=== PATIENT | female | born 1990 | race Caucasian/White ===

== ENCOUNTER 2018-03-23 10:30 | Emergency (ER) | payer OTHER ==
[2018-03-23 10:38] VITALS: BP 129/81; PULSE 110; TEMP 98.2; BMI 34.9
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
== END 2018-03-23 12:18 | disposition home or self-care (01) ==
LOC: JERFT 10:30
DX: M54.89 Other dorsalgia (principal); G89.21 Chronic pain due to trauma
CPT/HCPCS: 99281-25

== ENCOUNTER 2018-03-27 18:57 | Emergency (ER) | payer OTHER ==
[2018-03-27 19:22] VITALS: BP 106/82; PULSE 82; TEMP 97.9; BMI 34.9
--- NOTE | 2018-03-27 19:27 | PDOC ---
Rapid Medical Evaluation Chief Complaint: Pain, Acute Time Seen by Provider: 03/27/18 19:20 Medical Evaluation: Allergies Allergy/AdvReac Type Severity Reaction Status Date / Time No Known Allergies Allergy Verified 03/23/18 10:35 03/27/18 19:21 28 YEAR OLD FEMALE c/o right pelvic pain and left arm numbness. + home Pe: patient alert ox3 A: pelvic pain P: labs TVUS patient to the ER for further management of care. 03/27/18 19:25 Discharge Disposition - Diagnosis Pelvic pain - Referrals - Patient Instructions - Post Discharge Activity
[2018-03-27] MEDS ORDERED: ACETAMINOPHEN 500 MG TABLET (FP) PO ONE (19:31)
[2018-03-27] MEDS ORDERED: ACETAMINOPHEN 325 MG TABLET (FP) ONE (20:12)
[2018-03-27] MEDS ORDERED: SODIUM CHLORIDE 0.9% 1000 ML INFUS.BAG IV ONE (20:31)
--- NOTE | 2018-03-27 20:35 | PDOC ---
History of Present Illness - History of Present Illness Initial Comments: This is a 28 year old female currently , (2 previously normal ), with PMHx of cervical disc disease (had an MRI in January which showed bulging discs in her neck as well as some herniated discs in her spine) who presents with right sided abdominal pain. Patient states that 3 days ago she began experiencing left handed numbness & tingling, which she described as pins and needles, worse in the morning, that radiated up to her elbow. She states that her abdominal pain began last night around 10 pm and describes it as sharp, non-radiating, and lasted for about a minute then went away. Today she states that her abdominal pain returned and describes it as pulsating, throbbing, constant, located in RLQ. She states that she has experienced some nausea and vomiting but attributes it to her . She states that she had an IUD taken out on Jan 06, 2018 and hasnt had her period since except for some spotting in January 2018. Denies any changes in speech. Denies any weakness. Denies recent chest pain, shortness of breath, urinary symptoms, diarrhea, fever, chills, headache, vaginal bleeding or discharge. Denies recent travel. Denies past surgical Hx. <Ashlee Feng - Last Filed: 03/27/18 21:21> - General History Source: Patient Exam Limitations: No Limitations <Krysta Taylor - Last Filed: 03/27/18 22:11> - General Chief Complaint: Vaginal Bleeding Stated Complaint: ,Possible/RIGHT SIDE PAIN Time Seen by Provider: 03/27/18 19:20 Past History <Ashlee Feng - Last Filed: 03/27/18 21:21> - Past Medical History COPD: No - Suicide/Smoking/Psychosocial Hx Smoking History: Never smoked Information on smoking cessation initiated: No <Krysta Taylor - Last Filed: 03/27/18 22:11> - Past Medical History Allergies/Adverse Reactions: Allergies Allergy/AdvReac Type Severity Reaction Status Date / Time metronidazole [From Flagyl] Allergy Verified 03/27/18 19:22 Review of Systems - Review of Systems Comments:: GENERAL/CONSTITUTIONAL: No fever or chills. No weakness. HEAD, EYES, EARS, NOSE AND THROAT: No change in vision. No ear pain or discharge. No sore throat. CARDIOVASCULAR: No chest pain or shortness of breath. RESPIRATORY: No cough, wheezing, or hemoptysis. GASTROINTESTINAL: +nausea, +vomiting, no diarrhea or constipation. GENITOURINARY: No dysuria, frequency, or change in urination. MUSCULOSKELETAL: No joint or muscle pain. No new neck or back pain. SKIN: No rash NEUROLOGIC: +left hand/arm paresthesia. No headache, vertigo, loss of consciousness, or change in strength. ENDOCRINE: No increased thirst. No abnormal weight change. HEMATOLOGIC/LYMPHATIC: No anemia, easy bleeding, or history of blood clots. ALLERGIC/IMMUNOLOGIC: No hives or skin allergy. <Ashlee Feng - Last Filed: 03/27/18 21:21> *Physical Exam - Vital Signs Last Vital Signs Temp Pulse Resp BP Pulse Ox 97.9 F 82 18 106/82 100 03/27/18 19:19 18 19:19 18 19:19 03/27/18 19:19 03/27/18 19:19 - Physical Exam Comments: GENERAL: Awake, alert, and fully oriented, in no acute distress HEAD: No signs of trauma EYES: PERRLA, EOMI, sclera anicteric, conjunctiva clear LUNGS: Breath sounds equal, clear to auscultation bilaterally. No wheezes, and no crackles HEART: Regular rate and rhythm, normal S1 and S2, no murmurs, rubs or gallops ABDOMEN: Soft, right adnexal tenderness. Normoactive bowel sounds. No guarding , no rebound. EXTREMITIES: B/l wrist and elbow flexion & extension 5/5, pinching 5/5, 2+ radial and ulnar pulses. Normal range of motion, no edema. No clubbing or cyanosis. No cords, erythema, or tenderness NEUROLOGICAL: Normal speech, normal gait. Mild decreased sensation to light touch over left palm. SKIN: Warm, Dry, normal turgor, no rashes or lesions noted. Pelvic Exam: Scant white discharge at the vaginal vault. <Ashlee Feng - Last Filed: 03/27/18 21:21> - Vital Signs Last Vital Signs Temp Pulse Resp BP Pulse Ox 97.9 F 82 18 106/82 100 03/27/18 19:19 03/27/18 19:19 03/27/18 19:19 03/27/18 19:19 03/27/18 19:19 <Krysta Taylor - Last Filed: 03/27/18 22:11> ED Treatment Course - LABORATORY CBC & Chemistry Diagram: 03/27/18 20:25 - Medications Given in the ED: ED Medications Discontinued Medications Generic Name Dose Route Start Last Admin Trade Name Freq PRN Reason Stop Dose Admin Acetaminophen 975 mg 03/27/18 19:31 03/27/18 20:30 Tylenol - PO 03/27/18 19:32 975 mg ONCE ONE Administration <Ashlee Feng - Last Filed: 03/27/18 21:21> - LABORATORY CBC & Chemistry Diagram: 03/27/18 20:25 - Medications Given in the ED: ED Medications Discontinued Medications Generic Name Dose Route Start Last Admin Trade Name Freq PRN Reason Stop Dose Admin Acetaminophen 975 mg 03/27/18 19:31 03/27/18 20:30 Tylenol - PO 03/27/18 19:32 975 mg ONCE ONE Administration <Krysta Taylor - Last Filed: 03/27/18 22:11> Medical Decision Making - Medical Decision Making 03/27/18 20:32 28 yo F with h/o cervical disc disease lower back pain here today currently unsure of dates, LMP was spotting in january. had recently had iud removed in december. last pm had sharp right lower quadrant pain, fleeting lasted less than minute then recurred. no pain currenlty has had mild nausea, intermittent vomiting. 03/27/18 21:14 differential: radiculopathy, carpal tunnel, ecoptic, ovarian cyst. plan us tvus , labs bchg, ua, pt has had recent mri of her cervical spin showing disc bulge. will rajan require outpt nuerology followup has seen nuerology in past, sxs bretley exacerbated by change of . 03/27/18 21:53 pt started screaming , demanding iv be taken out of her arm. iv removed. explained concerns for r/o ectopic and need for iv. will orally hydrate for tvus. tvus performed awaiting results. <Krysta Taylor - Last Filed: 03/27/18 22:11> *DC/Admit/Observation/Transfer - Attestations Scribe Attestion: 03/27/18 21:00 Documentation prepared by Ashlee Feng, acting as medical claims specialist for Krysta Taylor MD. <Ashlee Feng - Last Filed: 03/27/18 21:21> - Discharge Dispostion Decision to Admit order: No <Krysta Taylor - Last Filed: 03/27/18 22:11> Diagnosis at time of Disposition: Pelvic pain, - Discharge Dispostion Disposition: HOME Condition at time of disposition: Good - Patient Instructions Printed Discharge Instructions: Medications and , DI for Cervical Radiculopathy Additional Instructions: your HCG level is 381 they are unable to see the in the uterus yet. you will therefore need a repeat hormone level, and a repeat ultrasound in 48 - 72 hours. you can follow up with dr. Calderon ( ob/ helper coordinator) . you can call to schedule. if you have worsening pain, bleeding or any concerns you should come back immediately. you can also follow up with your nuerologist for your arm / hand numbness. you should wear a brace on your wrist at night to help with symptoms. you should take a vitamin daily.
[2018-03-27 20:40] LABS: BASO % 0.5 % (0-2.0); EOS % 0.3 % (0-4.5); HEMOGLOBIN 13.8 GM/dL (10.7-15.3); LYMPH % 33.9 % (8-40); MCH 29.6 pg (25.7-33.7); MCHC 32.8 g/dl (32.0-36.0); MEAN CELL VOLUME 90.5 fl (80-96); MEAN PLT VOLUME 10.3 fl (7.5-11.1); MONO % 9.6 % (3.8-10.2); NEUT % 55.7 % (42.8-82.8); PLATELET COUNT 277 K/MM3 (134-434); RBC 4.65 M/mm3 (3.60-5.2); RDW 13.8 % (11.6-15.6); WHITE BLOOD COUNT 11.1 K/mm3 (4.0-10.0)
[2018-03-27 20:43] LABS: URINE APPEARANCE CLOUDY; URINE BILIRUBIN NEGATIVE (<2.0 mg/dL); URINE COLOR YELLOW; URINE GLUCOSE (UA) NEGATIVE (NEGATIVE); URINE KETONE 1+ (NEGATIVE); URINE LEUK ESTERASE 2+ (NEGATIVE); URINE NITRITE NEGATIVE (NEGATIVE); URINE PROTEIN NEGATIVE (NEGATIVE); URINE UROBILINOGEN NEGATIVE mg/dL (0.2-1.0)
[2018-03-27 20:46] LABS: EPI CELLS MANY /HPF (FEW); URINE BACTERIA RARE /hpf (NONE SEEN); URINE MUCUS FEW
[2018-03-27 20:53] LABS: INR 0.94 (0.83-1.09); PROTHROMBIN TIME (PATIENT) 11.1 SEC (9.7-13.0)
== END 2018-03-27 22:20 | disposition home or self-care (01) ==
LOC: JER 18:57
DX: O26.91 Pregnancy related conditions, unspecified, first trimester (principal); R10.2 Pelvic and perineal pain; O99.351 Diseases of the nervous system complicating pregnancy, first trimester; M54.12 Radiculopathy, cervical region; Z3A.00 Weeks of gestation of pregnancy not specified
CPT/HCPCS: 36415; 76817-TC; 81003; 81015; 84702; 85025; 85610; 86850; 86900; 86901; 99282-25

== ENCOUNTER 2018-06-02 17:50 | Emergency (ER) | payer OTHER ==
--- NOTE | 2018-06-02 17:54 | PDOC ---
Rapid Medical Evaluation Chief Complaint: Pain Time Seen by Provider: 06/02/18 17:51 Medical Evaluation: Allergies Allergy/AdvReac Type Severity Reaction Status Date / Time metronidazole [From Flagyl] Allergy Verified 03/27/18 19:22 06/02/18 17:52 I have performed a brief in person evaluation of this patient. The patient's CC: abdominal pain HPI: Pt is a 28 Yo female who is 4 months and complains of vaginal discharge. Denies hx of STDs. PE: Skin: Clear Heart: RRR Lungs: Clear MS. moves all extremities without difficulty. Neuro: Alert and oriented Psch: appropriate affect The patient will proceed to main ED for further evaluation. Discharge Disposition - Diagnosis Abdominal pain Qualifiers: Abdominal location: lower abdomen, unspecified Qualified Code(s): R10.30 - Lower abdominal pain, unspecified - Referrals - Patient Instructions - Post Discharge Activity
[2018-06-02 17:56] VITALS: BP 135/85; PULSE 90; TEMP 98.1; BMI 38.2
--- NOTE | 2018-06-02 18:46 | PDOC ---
History of Present Illness - General Chief Complaint: Pain Stated Complaint: ABD PAIN Time Seen by Provider: 06/02/18 17:51 History Source: Patient Past History - Past Medical History Allergies/Adverse Reactions: Allergies Allergy/AdvReac Type Severity Reaction Status Date / Time metronidazole [From Flagyl] Allergy Verified 06/02/18 18:45 Home Medications: Ambulatory Orders NK [No Known Home Medication] 03/27/18 COPD: No - Reproductive History (#): 3 Para: 3 - Immunization History Immunization Up to Date: Yes - Suicide/Smoking/Psychosocial Hx Smoking History: Never smoked Hx Alcohol Use: No Drug/Substance Use Hx: No Review of Systems - Review of Systems Constitutional: No: Chills, Fever ABD/GI: Yes: Abdominal cramping. No: Nausea, Vomiting : No: Dysuria, Flank Pain, Hematuria *Physical Exam - Vital Signs Last Vital Signs Temp Pulse Resp BP Pulse Ox 98.1 F 90 15 135/85 99 06/02/18 17:52 06/02/18 17:52 06/02/18 17:52 06/02/18 17:52 06/02/18 17:52 - Physical Exam General Appearance: Yes: Appropriately Dressed. No: Apparent Distress HEENT: positive: Normal Voice Neck: positive: Supple Respiratory/Chest: negative: Respiratory Distress Gastrointestinal/Abdominal: positive: Soft. negative: Tender Musculoskeletal: negative: CVA Tenderness Integumentary: positive: Dry, Warm Neurologic: positive: Fully Oriented, Alert, Normal Mood/Affect Moderate Sedation - Procedure Monitoring Vital Signs: Procedure Monitoring Vital Signs Temperature 98.1 F 06/02/18 17:52 Pulse Rate 90 06/02/18 17:52 Respiratory Rate 15 06/02/18 17:52 Blood Pressure 135/85 06/02/18 17:52 O2 Sat by Pulse Oximetry (%) 99 06/02/18 17:52 Medical Decision Making - Medical Decision Making 06/02/18 18:45 28 yo , ~ 4 months , last US 3-4 weeks ago, no issues w/ preg so far, here w/ lower abd pain r/t back x 2 days. No vag bleed, dysuria, n/v/f/c See exam 2nd trimester abd pain No vag bleed/dysuria No trauma No issues w/ preg so far, last US ~3 weeks ago Exam unremarkable -ua -US 06/02/18 19:45 06/02/18 19:46 Pt requesting to leave prior to results of urine and ultrasound. 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 Requested that I call her back at [phone] 06/02/18 20:39 UA with trace leuks, no nitrites. Ucx pending. Ultrasound read as live intrauterine at ~14 weeks with cardiac activity and possible low- lying placenta, need transvag US to r/o placenta previa. I called patient and discussed results, has no vag bleeding. Patient to follow up with her OB this week. Reasons to return discussed with patient *DC/Admit/Observation/Transfer Diagnosis at time of Disposition: Abdominal pain affecting - Discharge Dispostion Disposition: HOME Condition at time of disposition: Stable - Referrals Referrals: Jazzy Rosenberg MD [Primary Care Provider] - - Patient Instructions Printed Discharge Instructions: Managing Symptoms of Additional Instructions: You have left prior to your urine and ultrasound results. We will call you with results when they return. Take Tylenol for pain as needed and follow up with your OB - Post Discharge Activity
[2018-06-02 19:06] LABS: URINE APPEARANCE CLOUDY; URINE BILIRUBIN NEGATIVE (<2.0 mg/dL); URINE COLOR DKYELLOW; URINE GLUCOSE (UA) NEGATIVE (NEGATIVE); URINE KETONE TRACE (NEGATIVE); URINE LEUK ESTERASE 1+ (NEGATIVE); URINE NITRITE NEGATIVE (NEGATIVE); URINE PROTEIN NEGATIVE (NEGATIVE); URINE UROBILINOGEN NEGATIVE mg/dL (0.2-1.0)
[2018-06-02 21:21] LABS: CALCIUM OXALATE CRYSTALS MODERATE /hpf (NONE SEEN); EPI CELLS MANY /HPF (FEW); URINE BACTERIA RARE /hpf (NONE SEEN); URINE MUCUS MODERATE
== END 2018-06-02 19:53 | disposition home or self-care (01) ==
LOC: JER 17:50
DX: O26.892 Other specified pregnancy related conditions, second trimester (principal); O44.42 Low lying placenta NOS or without hemorrhage, second trimester; Z3A.14 14 weeks gestation of pregnancy
CPT/HCPCS: 76815; 81003; 81015; 99282-25

== ENCOUNTER 2018-11-22 07:05 | Inpatient (IN) | payer OTHER ==
[2018-11-22] MEDS ORDERED: ELECTROLYTE-148 SOLN 1,000 ML IV SCH (07:30)
[2018-11-22 08:17] LABS: BASO % 0.3 % (0-2.0); EOS % 0.6 % (0-4.5); HEMATOCRIT 34.9 % (32.4-45.2); HEMOGLOBIN 11.6 GM/dL (10.7-15.3); LYMPH % 28.7 % (8-40); MCH 28.6 pg (25.7-33.7); MCHC 33.4 g/dl (32.0-36.0); MEAN CELL VOLUME 85.5 fl (80-96); MEAN PLT VOLUME 10.5 fl (7.5-11.1); MONO % 9.5 % (3.8-10.2); NEUT % 60.9 % (42.8-82.8); RBC 4.08 M/mm3 (3.60-5.2); RDW 13.8 % (11.6-15.6); WHITE BLOOD COUNT 9.1 K/mm3 (4.0-10.0)
[2018-11-22 08:22] VITALS: BMI 23.8
[2018-11-22 08:22] LABS: BLOOD UREA NITROGEN 12.4 mg/dL (7-18); CALCIUM 8.4 mg/dL (8.5-10.1); CREATININE 0.4 mg/dL (0.55-1.3)
[2018-11-22 08:28] LABS: INR 0.89 (0.83-1.09); PROTHROMBIN TIME (PATIENT) 10.5 SEC (9.7-13.0)
[2018-11-22 08:31] LABS: ACTIVATED PTT 29.9 SECONDS (25.2-36.5)
[2018-11-22 08:38] LABS: PLATELET COUNT 211 K/MM3 (134-434)
--- NOTE | 2018-11-22 09:15 | HP ---
Past Medical History - Admission Chief Complaint: cramping, leaking fluid History of Present Illness: 28 y/o female with SIUP at 38.6 weeks admitted with complaints of LOF/ cramps. Upon examination pt is 2cm dilated, grossly ruptured but confirmed by nitrizine. complicated by obesity. H/o X 2. Normal female by NIPT, AFP also WNL. Followed with MFM throughout . GBS negative. HIV negative. History Source: Patient, Medical Record Limitations to Obtaining History: No Limitations - Past Medical History ...: 4 ...Para: 2 ...Term: 2 ...: 0 ...Spon : 1 ...Induced : 0 ...Multiple Gestation: 0 ...LMP: 02/22/18 ... Weeks Gestation by Dates: 39 ...EDC by Dates: 11/29/18 ...EDC by Sono: 11/29/18 - Past Surgical History Hx Myomectomy: No Hx Transabdominal Cerclage: No - Smoking History Smoking history: Never smoked - Alcohol/Substance Use Hx Alcohol Use: No - Social History Usual Living Arrangement: Yes: With Spouse ADL: Independent History of Recent Travel: No Home Medications - Allergies Allergies/Adverse Reactions: Allergies Allergy/AdvReac Type Severity Reaction Status Date / Time metronidazole [From Flagyl] Allergy Verified 10/06/18 09:31 Review of Systems - Review of Systems Constitutional: reports: No Symptoms Eyes: reports: No Symptoms HENT: reports: No Symptoms Neck: reports: No Symptoms Cardiovascular: reports: No Symptoms Respiratory: reports: No Symptoms Gastrointestinal: reports: No Symptoms Genitourinary: reports: Other (leaking amniotic fluid) Musculoskeletal: reports: No Symptoms Integumentary: reports: No Symptoms Neurological: reports: No Symptoms Endocrine: reports: No Symptoms Hematology/Lymphatic: reports: No Symptoms Psychiatric: reports: No Symptoms Physical Exam - Maternity Vital Signs: Vital Signs Temperature 98 F 11/22/18 08:10 Pulse Rate 70 11/22/18 09:00 Respiratory Rate 18 11/22/18 09:00 Blood Pressure 129/82 11/22/18 09:00 O2 Sat by Pulse Oximetry (%) Constitutional: Yes: Well Nourished, No Distress, Calm Eyes: Yes: Conjunctiva Clear Neck: Yes: Supple Cardiovascular: Yes: Regular Rate and Rhythm Lungs: Clear to auscultation - Abdominal Exam/OB Fundal Height: 39 Number of Fetuses: Single Presentation: Vertex Contractions: Yes Regularity: Regular Intensity: Mild/Mod Accelerations: Uniform Decelerations: None - Vaginal Exam/OB Vaginal Bleediing: No Dilatation (cm): 2 Effacement (%): 50 Amniotic Membrane Status: Ruptured Amniotic Fluid: Yes: Clear Presentation: Vertex/Position Station: -2 - Physical Exam Psychiatric: Yes: Alert, Oriented - Labs Lab Results: CBC, BMP 11/22/18 07:30 11/22/18 07:30 Hemorrhage Risk Assessment - Risk Factors Medium Risk Factors: Yes: None High Risk Factors: Yes: None Risk Score: 1 Risk Level: Medium Risk Problem List - Problems (1) Spontaneous rupture of amniotic membranes Code(s): [id number] - (2) Term Code(s): Z34.90 - ENCNTR FOR SUPRVSN OF NORMAL , UNSP, UNSP TRIMESTER Assessment/Plan 28 y/o with SIUP at 38.6 weeks here with SROM, contractions, early labor admitted to L&D labs WNL analgesia prn GBS negative expectant management for now
[2018-11-22] MEDS ORDERED: BUTORPHANOL TARTRATE 1 MG/ML VIAL IVPB ONE (09:47)
[2018-11-22] MEDS ORDERED: PROMETHAZINE HCL 25 MG/1 ML VIAL IVPUSH ONE (09:47)
[2018-11-22] MEDS ORDERED: FENTANYL/BUPIVACAINE/NS/PF - PCEA - 50 ML DISP.SYRIN EP ONE ×2 (12:56→17:09)
[2018-11-22] MEDS ORDERED: NALOXONE HCL 0.4 MG/ML VIAL IVPUSH PRN (14:10)
[2018-11-22] MEDS ORDERED: FENTANYL/BUPIVACAINE/NS/PF - PCEA - 50 ML DISP.SYRIN EP SCH (14:15)
[2018-11-22] MEDS ORDERED: OXYTOCIN 20 UNITS in 0.9% NS 20 UNIT/1,000 ML INFUS.BAG IV ONE (18:28)
[2018-11-22] MEDS ORDERED: LIDOCAINE HCL 1% PRESERVATIVE FREE - 30ML VIAL ONE (18:28)
[2018-11-22] MEDS ORDERED: BISACODYL 10 MG SUPP.RECT RC PRN (18:41)
[2018-11-22] MEDS ORDERED: BENZOCAINE 28 GM HEMORRHOIDAL OINTMENT TP PRN (18:41)
[2018-11-22] MEDS ORDERED: BENZOCAINE 20% 57 GM BOTTLE TP PRN (18:41)
[2018-11-22] MEDS ORDERED: METHYLERGONOVINE MALEATE 0.2 MG/1 ML AMP IM PRN (18:41)
[2018-11-22] MEDS ORDERED: WITCH HAZEL 50% (TUCKS) 40 PAD/JAR PAD TP PRN (18:41)
[2018-11-22] MEDS ORDERED: OXYTOCIN 20 UNITS in 0.9% NS 20 UNIT/1,000 ML INFUS.BAG IV SCH (18:45)
--- NOTE | 2018-11-22 21:45 | PN ---
Delivery - Delivery Type of Anesthesia: Epidural Episiotomy/Laceration: None EBL (cc): 300 Delivery, Single - Stages of Labor Date 1st Stage Initiatied: 11/22/18 Time 1st Stage Initiated: 06:30 Date 2nd Stage Initiated: 11/22/18 Time 2nd Stage Initiated: 19:00 Date of Delivery: 11/22/18 Time of Delivery: 19:07 Time Placenta Delivered: 19:10 Placenta: Yes: Spontaneous - Condition of Infant Dope Worker/Sorter Operator Present: No Gender: Female Weight: 7 lb 9 oz Position: Left, OA Total Hours ROM (Hrs/Mins): 13H10M - 1 Minute Total Score: 9 5 Minutes Total Score: 9 - Feeding Plan Initial Plan: Elected not to breastfeed exclusively throughout hospitalization Remarks - Remarks Remarks: Uncomplicated delivery of live female infant from VITA position across intact perineum anterior shoulder (right) delivered with ease along with remainder of 3VC noted, clamped and cut placenta delivered in tact and spontaneously no lacerations noted mom stable baby to well baby nursery oxytocin infusing after delivery
[2018-11-22] MEDS: ACETAMINOPHEN 325 MG TABLET (FP) PO PRN (23:50)
[2018-11-22] MEDS: IBUPROFEN 600 MG TABLET (FP) PO PRN (23:51)
[2018-11-23] MEDS: ACETAMINOPHEN 325 MG TABLET (FP) PO PRN ×3 (03:35→20:10)
[2018-11-23] MEDS: IBUPROFEN 600 MG TABLET (FP) PO PRN ×2 (03:35→20:09)
[2018-11-23 08:22] LABS: BASO % 0.2 % (0-2.0); EOS % 0.4 % (0-4.5); HEMATOCRIT 34.4 % (32.4-45.2); HEMOGLOBIN 11.5 GM/dL (10.7-15.3); LYMPH % 20.3 % (8-40); MCH 28.9 pg (25.7-33.7); MCHC 33.4 g/dl (32.0-36.0); MEAN CELL VOLUME 86.4 fl (80-96); MEAN PLT VOLUME 11.1 fl (7.5-11.1); NEUT % 67.1 % (42.8-82.8); PLATELET COUNT 224 K/MM3 (134-434); RBC 3.98 M/mm3 (3.60-5.2); RDW 13.7 % (11.6-15.6); WHITE BLOOD COUNT 13.2 K/mm3 (4.0-10.0)
[2018-11-23] MEDS: oxyCODONE HCL 5 MG TABLET PO PRN ×3 (08:45→20:10)
[2018-11-23] MEDS ORDERED: DIPHTH,PERTUSS(ACELL),TET 0.5 ML DISP.SYRIN IM ONE (14:00)
[2018-11-23 15:49] VITALS: PULSE 74
[2018-11-23] MEDS ORDERED: SENNOSIDES/DOCUSATE COMBO (SENNA PLUS) TABLET (UD) PO PRN (22:00)
[2018-11-24] MEDS: ACETAMINOPHEN 325 MG TABLET (FP) PO PRN ×2 (02:02→08:39)
[2018-11-24] MEDS: IBUPROFEN 600 MG TABLET (FP) PO PRN (02:02)
[2018-11-24] MEDS: oxyCODONE HCL 5 MG TABLET PO PRN ×2 (02:02→08:41)
--- NOTE | 2018-11-24 10:12 | DS ---
Physical Exam-METAL MOULDER Vital Signs: Vital Signs Temperature 98.7 F 11/23/18 22:00 Pulse Rate 74 11/23/18 22:00 Respiratory Rate 20 11/23/18 22:00 Blood Pressure 129/96 11/23/18 22:00 O2 Sat by Pulse Oximetry (%) 100 11/22/18 19:00 Constitutional: Yes: Well Nourished Eyes: Yes: Conjunctiva Clear HENT: Yes: Atraumatic Neck: Yes: Supple Cardiovascular: Yes: Regular Rate and Rhythm Respiratory: Yes: Regular Gastrointestinal: Yes: Normal Bowel Sounds External Genitalia: Yes: Normal Vaginal Exam: Yes: Normal Cervix: Yes: Normal Uterus: Yes: Firm ....Post : Yes: Uterus firm Breast(s): Yes: WNL Musculoskeletal: Yes: WNL Extremities: Yes: WNL Neurological: Yes: Alert, Oriented ...Motor Strength: WNL Psychiatric: Yes: Alert, Oriented Labs: CBC, BMP 11/23/18 07:42 11/22/18 07:30 Delivery - Delivery Type of Anesthesia: Epidural Episiotomy/Laceration: None EBL (cc): 300 Delivery, Single - Stages of Labor Date 1st Stage Initiatied: 11/22/18 Time 1st Stage Initiated: 06:30 Date 2nd Stage Initiated: 11/22/18 Time 2nd Stage Initiated: 19:00 Date of Delivery: 11/22/18 Time of Delivery: 19:07 Time Placenta Delivered: 19:10 Placenta: Yes: Spontaneous - Condition of Infant Machine Silk Screen Printer/Duck Bill Operator Present: No Gender: Female Weight: 7 lb 9 oz Position: Left, OA Total Hours ROM (Hrs/Mins): 13H10M - 1 Minute Total Score: 9 5 Minutes Total Score: 9 - [place] Feeding Plan Initial Plan: Elected not to breastfeed exclusively throughout hospitalization Discharge Summary Reason For Visit: LABOR Current Active Problems Spontaneous rupture of amniotic membranes (Acute) Term (Acute) Procedures: Principal: Normal vaginal delivery Hospital Course: Routine care Condition: Good - Instructions Diet, Activity, Other Instructions: Regular diet No douching, no sexual intercourse x 6 weeks F/U with MD in 6 weeks Disposition: HOME
[2018-11-24 11:03] VITALS: BP 143/72; TEMP 98.2
--- NOTE | 2018-11-27 07:47 | PN ---
Post Progress Note Type of Delivery: Vital Signs: Vital Signs Temperature 98.2 F 11/24/18 10:00 Pulse Rate 74 11/24/18 10:00 Respiratory Rate 20 11/24/18 10:00 Blood Pressure 143/72 11/24/18 10:00 O2 Sat by Pulse Oximetry (%) 100 11/22/18 19:00 Uterus: Yes: Fundus Firm Abdomen/GI: Yes: Abdomen soft Lochia, amount: Small Extremities: Yes: Calves non-tender Perineum: Yes: Intact Activity: Ambulating - Labs Labs: CBC WBC 13.2 K/mm3 (4.0-10.0) H 11/23/18 07:42 RBC 3.98 M/mm3 (3.60-5.2) 11/23/18 07:42 Hgb 11.5 GM/dL (10.7-15.3) 11/23/18 07:42 Hct 34.4 % (32.4-45.2) 11/23/18 07:42 MCV 86.4 fl (80-96) 11/23/18 07:42 MCH 28.9 pg (25.7-33.7) 11/23/18 07:42 MCHC 33.4 g/dl (32.0-36.0) 11/23/18 07:42 RDW 13.7 % (11.6-15.6) 11/23/18 07:42 Plt Count 224 K/MM3 (134-434) 11/23/18 07:42 MPV 11.1 fl (7.5-11.1) 11/23/18 07:42 Absolute Neuts (auto) 8.8 K/mm3 (1.5-8.0) H 11/23/18 07:42 Neutrophils % 67.1 % (42.8-82.8) 11/23/18 07:42 Lymphocytes % 20.3 % (8-40) D 11/23/18 07:42 Monocytes % 12.0 % (3.8-10.2) H 11/23/18 07:42 Eosinophils % 0.4 % (0-4.5) 11/23/18 07:42 Basophils % 0.2 % (0-2.0) 11/23/18 07:42 Nucleated RBC % 0 % (0-0) 11/23/18 07:42 Problem List - Problems (1) Spontaneous rupture of amniotic membranes Code(s): KWG4303 - (2) Term Code(s): Z34.90 - ENCNTR FOR SUPRVSN OF NORMAL , UNSP, UNSP TRIMESTER (3) Normal vaginal delivery Code(s): O80 - ENCOUNTER FOR FULL-TERM UNCOMPLICATED DELIVERY Assessment/Plan pt doing well routine care encourage ambulation regular diet cbc stable
== END 2018-11-24 16:30 | disposition home or self-care (01) | DRG 560 ==
LOC: JLDR 07:05 → J3W 20:52
PROVIDERS: ADMIT Obstetrics & Gynecology; ATTEND Obstetrics & Gynecology
PROC: 10E0XZZ Delivery of Products of Conception, External Approach (ICD-10-PCS; principal; 2018-11-22)
DX: O99.214 Obesity complicating childbirth (principal); Z3A.38 38 weeks gestation of pregnancy; Z37.0 Single live birth
CPT/HCPCS: 36415; 59409; 80048; 85025; 85610; 85730; 86593; 86850; 86900; 86901; 90715

== ENCOUNTER 2020-01-06 11:34 | Emergency (ER) | payer OTHER ==
[2020-01-06] MEDS ORDERED: ACETAMINOPHEN 325 MG TABLET (FP) PO ONE (11:44)
[2020-01-06] MEDS ORDERED: LIDOCAINE 5% TOPICAL PATCH TP ONE (11:44)
[2020-01-06 11:53] VITALS: BP 131/77; PULSE 76; TEMP 98.4; BMI 37.9
[2020-01-06] MEDS ORDERED: LIDOCAINE 5% TOPICAL PATCH ONE (12:04)
[2020-01-06] MEDS ORDERED: ACETAMINOPHEN 325 MG TABLET (FP) ONE (12:04)
--- NOTE | 2020-01-06 12:14 | PDOC ---
History of Present Illness - General Chief Complaint: Injury Stated Complaint: FALL,RT BACK PAIN Time Seen by Provider: 01/06/20 11:44 History Source: Patient Exam Limitations: No Limitations - History of Present Illness Initial Comments: Pt is a 29 yo F, @24 weeks, who is presenting with diffuse lower lumbar back pain. Pt states 4 days ago (01/02), she slipped backwards in a wet bathroom, hitting her back and occiput of her head. Pt was visiting in [place], [place] at that time, and had a trauma evaluation done at [facility], which included CT head, C/T/L spine and x-rays, which were negative for fractures. She also endorses light sensitivity and frontal headache since the fall. Pt has not seen any analgesics for her pain. Pt saw her OB and PT on Friday, which showed good activity. Pt has continued to feel movement, with no vaginal bleeding, abdominal pain, passage of fluids. Pt denies any fevers/chills, vision changes, syncope, chest pain, palpitations, SOB, nausea/vomiting, abdominal pain, urinary symptoms, incontinence of urine or stool, diarrhea/constipation, parasthesia/numbness/weakness of extremities, or leg swelling. Allergies: NKDA Social: Pt denies any cigarette, alcohol, or drug use. Pt denies any recent travel or sick contacts. Surgical: broken mandible repair Family: no relevant history. 01/06/20 12:25 Past History - Travel History Traveled outside of the country in the last 30 days: No Close contact w/someone who was outside of country & ill: No - Medical History Allergies/Adverse Reactions: Allergies Allergy/AdvReac Type Severity Reaction Status Date / Time metronidazole [From Flagyl] Allergy Verified 01/06/20 11:34 Home Medications: Ambulatory Orders Alprazolam 2 mg PO BID 01/06/20 Dextroamphetamine/Amphetamine [Adderall Xr 30 mg Capsule] 30 mg PO DAILY 01/06/20 Lidocaine 5% Patch [Lidoderm -] 1 patch TP DAILY #7 patch 01/06/20 Sertraline HCl [Zoloft] 100 mg PO DAILY 01/06/20 Asthma: No Cancer: No Cardiac Disorders: No COPD: No Diabetes: No HTN: No Psychiatric Problems: Yes (ANXIETY,DEPRESSION) Seizures: No Thyroid Disease: No - Reproductive History Is Patient Now?: Yes (#): 3 Para: 3 - Immunization History Immunization Up to Date: Yes - Psycho-Social/Smoking History Smoking History: Never smoked Have you smoked in the past 12 months: No Information on smoking cessation initiated: No - Substance Abuse Hx (Audit-C & DAST Scrn) How often the patient has a drink containing alcohol: Never Score: In Men: 4 or > Positive; In Women: 3 or > Positive: 0 Screen Result (Pos requires Nsg. Audit-10AR): Negative In the last yr the pt used illegal drug/Rx for NonMed reason: No Score: Yes response is considered Positive: 0 Screen Result (Positive result requires Nsg. DAST-10): Negative Trauma Specific PMHX - Complaint Specific PMHX Arthritis: No Back Injury: Yes Neck Injury: No Hx Sacro Iliac Joint Dysfunction: No Review of Systems - Review of Systems Able to Perform ROS?: Yes Is the patient limited Yi proficient: No Constitutional: Yes: Weight Stable. No: Chills, Diaphoresis, Fever, Loss of Appetite, Malaise, Weakness HEENTM: Yes: Other (light sensitivity). No: Blurred Vision, Recent change in vision, Double Vision, Nose Congestion, Throat Pain, Throat Swelling, Difficulty Swallowing Respiratory: No: Cough, Orthopnea, Shortness of Breath Cardiac (ROS): No: Chest Pain, Edema, Irregular Heart Rate, Lightheadedness, Palpitations, Syncope, Chest Tightness ABD/GI: No: Constipated, Diarrhea, Nausea, Poor Appetite, Poor Fluid Intake, Vomiting : No: Burning, Dysuria, Discharge, Frequency, Flank Pain, Hematuria, Inc ontinence, Pain, Urgency Musculoskeletal: Yes: See HPI, Back Pain. No: Muscle Pain, Muscle Weakness, Neck Pain Integumentary: No: Bruising, Rash Neurological: Yes: Headache. No: Numbness, Paresthesia, Weakness, Unsteady Gait, Ataxia, Dizziness Psychiatric: No: Sleep Pattern Change, Change in Appetite Endocrine: No: Increased Urine, Change in Weight Hematologic/Lymphatic: No: Anemia, Blood Clots, Easy Bleeding, Easy Bruising All Other Systems: Reviewed and Negative *Physical Exam - Vital Signs Last Vital Signs Temp Pulse Resp BP Pulse Ox 98.4 F 76 20 131/77 99 01/06/20 11:34 01/06/20 11:34 01/06/20 11:34 01/06/20 11:34 01/06/20 11:34 - Physical Exam Vitals stable, pt afebrile. Pt in NAD, obese body habitus. Pt alert and oriented x3. waiter/waitress buffet generally intact, muscular strength and sensation intact. No midline spinal tenderness, step-offs, or crepitus. +b/l lumbar paraspinal TTP with overlying ecchymosis of lower back. Head normocephalic, atraumatic. Eyes PERRLA, EOMI. Oropharynx without erythema or exudates, no LAD b/l. No nasal congestion. Hearing intact. Clear heart sounds, S1/S2, no JVD, b/l pedal edema, or heart murmur. Clear lung sounds, no respiratory distress, wheezes, crackles, or accessory muscle use. Fundal height appropriate for gestational age. No abdominal or CVA tenderness to palpation, no rebound, no guarding. Abdomen soft, non-distended, and with normoactive bowel sounds. Skin without jaundice or rash. 01/06/20 12:33 Medical Decision Making - Medical Decision Making Pt was seen at bedside, also will be seen by attending Dr. Emery. Pt presenting with lower back pain. Had recent CT scans and x-ray without acute pathology, per pt. Pt feels activity, with no vaginal bleeding or abdominal pain. No red flag symptoms for back pain. Provided 650 mg PO tylenol and lidocaine patch for improvement of pain. Will continue to reassess pt and monitor for symptomatic improvement. 01/06/20 12:39 -Symptomatic improvement after interventions -Sent lidocaine patches to pts pharmacy Pt can be discharged to home with follow-up. Pt advised to follow-up with PCP and OB in 1-2 days. Strict return precautions provided with pt understanding. 01/06/20 12:40 Discharge - Discharge Information Problems reviewed: Yes Clinical Impression/Diagnosis: Lower back pain Qualifiers: Chronicity: acute Back pain laterality: bilateral Sciatica presence: without sciatica Qualified Code(s): M54.5 - Low back pain Condition: Good Disposition: HOME - Admission No - Follow up/Referral Referrals: Harriett Pedro MD [Staff Physician] - - Patient Discharge Instructions Patient Printed Discharge Instructions: DI for Low Back Pain, DI for Concussion Additional Instructions: You were seen in the ER today for low back pain. Please follow-up with your primary care doctor and OB within 1-2 days to discuss your visit and make sure your symptoms have improved. Please return to the ER if you have any worsening pain, development of fevers or chills, loss of consciousness, inability to tolerate food or fluids, or any other concerns. I have sent medications to your pharmacy. Please take these medications as prescribed. You can take tylenol every 4-6 hours as needed for pain. - Post Discharge Activity
--- NOTE | 2020-01-06 12:39 | PDOC ---
Attending Attestation - Resident Resident Name: ShawnaLesley - ED Attending Attestation I have performed the following: I have examined & evaluated the patient, The case was reviewed & discussed with the resident, I agree w/resident's findings & plan - HPI HPI: 01/06/20 12:36 29 yo F, @24 weeks, who is presenting with diffuse lower lumbar back pain. Pt states 4 days ago (01/02), she slipped backwards in a wet bathroom, hitting her back and occiput of her head. Pt was visiting in [place], [place] at that time, and had a trauma evaluation done at [facility], which included CT head, C/T/L spine and x-rays, which were negative for fractures. She also endorses light sensitivity and frontal headache since the fall. Pt has not seen any analgesics for her pain. Pt saw her OB and PT on Friday, which showed good activity. Pt has continued to feel movement, with no vaginal bleeding, abdominal pain, passage of fluids. Pt denies any fevers/chills, vision changes, syncope, chest pain, palpitations, SOB, nausea/vomiting, abdominal pain, urinary symptoms, incontinence of urine or stool, diarrhea/constipation, parasthesia/numbness/weakness of extremities, or leg swelling. - Physicial Exam PE: 01/06/20 12:36 Agree with the resident's HPI and PE as documented in the electronic medical record. NAD, well appearing, EOMI, PERRL, nl conjunctiva, anicteric; neck supple. lungs clear, RRR, abdomen soft nontender. no rebound, guarding. Back with diffuse lumbar TTP, FROM extension and flexion. LEONG x4, no focal neuro deficits. No peripheral edema. normal color for ethnicity, WWP. gait stable. - Medical Decision Making 01/06/20 12:36 Vital Signs Temp Pulse Resp BP Pulse Ox 98.4 F 76 20 131/77 99 01/06/20 11:34 01/06/20 11:34 01/06/20 11:34 01/06/20 11:34 01/06/20 11:34 vitals reviewed, wnl ddx. lumbago, msk strain clinically doubt cord compression no red flag sx to suggest cauda equina, neuro intact, no fever no procedures or injections. gait is stable msk strain/reproducible along her lumbar region paraspinally analgesia here, topical lidoderm and tylenol feels improved still able to ambulate +FM, no abdomiinal pain, no urinary sx, no retention or incontinence. no VB may have some concussive sx given her fall about 4 days ago in [place]. instructed to try topical agents, warm compresses/heat packs, tylenol prn, ROM exercises and activities such as yoga and swimming no imaging indicated at this time Pt to be discharged in stable condition. Patient made aware of clinical impression, treatment recommendations and disposition plan, return precautions discussed (including but not limited to new or persistent/worsening symptoms, pain, fevers, or signs of infection, chest pain, respiratory distress, inability to tolerate oral intake, dehydration, syncope, or neurologic changes). Follow up with PMD and/or specialist as recommended, follow up information provided, take medications as instructed for duration of time. continue with supportive care, avoid triggers and precipitants. All questions answered to patient's satisfaction and expressed understanding and comfort with this. At the time of d ischarge, the patient is alert, clinically improved, tolerating po and verbalizes understanding of instructions, satisfied with the care received and felt comfortable with the plan. Patient does not suffer from an acute life- threatening medical condition at this time and is safe for outpatient follow- up. 01/06/20 12:38 Discharge - Discharge Information Problems reviewed: Yes Clinical Impression/Diagnosis: Lumbar strain Lower back pain Qualifiers: Chronicity: acute Back pain laterality: bilateral Sciatica presence: without sciatica Qualified Code(s): M54.5 - Low back pain Condition: Good Disposition: HOME - Additional Discharge Information Prescriptions: Lidocaine 5% Patch [Lidoderm -] 1 patch TP DAILY #7 patch - Follow up/Referral Referrals: Harriett Pedro MD [Staff Physician] - - Patient Discharge Instructions Patient Printed Discharge Instructions: DI for Concussion, DI for Low Back Pain Additional Instructions: You were seen in the ER today for low back pain. Please follow-up with your primary care doctor and OB within 1-2 days to discuss your visit and make sure your symptoms have improved. Please return to the ER if you have any worsening pain, development of fevers or chills, loss of consciousness, inability to tolerate food or fluids, or any other concerns. I have sent medications to your pharmacy. Please take these medications as prescribed. You can take tylenol every 4-6 hours as needed for pain. - Post Discharge Activity
[2020-01-06] MEDS ORDERED: LIDOCAINE PATCH REMOVAL MC SCH (22:00)
== END 2020-01-06 13:00 | disposition home or self-care (01) ==
LOC: FER 11:34
DX: M54.5 Low back pain (principal)
CPT/HCPCS: 99283-25